=== PATIENT | female | born 1970 | race Two or more races ===

== ENCOUNTER 2017-09-15 11:30 | Outpatient (CLI) | payer OTHER ==
[~2017-09-15 11:30] MED LIST: NEURONTIN300 MG; PROTONIX40 M1; TORADOL30 MG; TRAMADOL HCL-AP1 TAB PO; ZANTAC15 MG/ML; ZOFRAN4 MG PO
== END 2017-09-15 11:52 | disposition home or self-care (01) ==
LOC: MAMO-SONO 11:30
DX: Z12.31 Encounter for screening mammogram for malignant neoplasm of breast (principal)

== ENCOUNTER 2017-10-30 13:17 | Outpatient (CLI) | payer OTHER | END 2017-10-30 13:22 | disposition home or self-care (01) | LOC: SONOGRAMA 13:17 | DX: R10.31 Right lower quadrant pain (principal); R10.32 Left lower quadrant pain ==

== ENCOUNTER 2018-02-16 08:41 | Outpatient (CLI) | payer OTHER | END 2018-02-16 08:51 | disposition home or self-care (01) | LOC: RAD 08:41 | DX: R05 Cough (principal) ==

== ENCOUNTER 2019-07-09 07:57 | Outpatient (CLI) | payer OTHER | END 2019-07-09 08:16 | disposition home or self-care (01) | LOC: MAMO-SONO 07:57 | DX: Z12.31 Encounter for screening mammogram for malignant neoplasm of breast (principal); N63.10 Unspecified lump in the right breast, unspecified quadrant; N63.20 Unspecified lump in the left breast, unspecified quadrant ==

== ENCOUNTER 2020-12-02 08:31 | Outpatient (CLI) | payer OTHER | END 2020-12-02 08:40 | disposition home or self-care (01) | LOC: SONOGRAMA 08:31 → MAMO-SONO 08:45 | PROVIDERS: ATTEND Internal Medicine Rheumatology | DX: M25.512 Pain in left shoulder (principal); M25.822 Other specified joint disorders, left elbow; M77.8 Other enthesopathies, not elsewhere classified; R10.13 Epigastric pain ==

== ENCOUNTER 2021-02-25 10:13 | Outpatient (CLI) | payer OTHER | END 2021-02-25 10:19 | disposition home or self-care (01) | LOC: MAMO-SONO 10:13 | PROVIDERS: ATTEND Specialist | DX: N60.11 Diffuse cystic mastopathy of right breast (principal); N60.12 Diffuse cystic mastopathy of left breast; Z12.31 Encounter for screening mammogram for malignant neoplasm of breast ==

== ENCOUNTER → 2021-03-03 | Outpatient (CLI) | payer OTHER | END | disposition home or self-care (01) | LOC: NUCLEAR 13:18 | PROVIDERS: ATTEND Internal Medicine Rheumatology | DX: M81.0 Age-related osteoporosis without current pathological fracture (principal) ==

== ENCOUNTER 2022-03-04 08:44 | Outpatient (CLI) | payer OTHER | END 2022-03-04 08:53 | disposition home or self-care (01) | LOC: MAMO-SONO 08:44 | PROVIDERS: ATTEND Specialist | DX: R10.13 Epigastric pain (principal); N60.11 Diffuse cystic mastopathy of right breast; N60.12 Diffuse cystic mastopathy of left breast ==

== ENCOUNTER 2023-03-15 10:30 | Outpatient (CLI) | payer OTHER | END 2023-03-15 10:38 | disposition home or self-care (01) | LOC: MAMO-SONO 10:30 | PROVIDERS: ATTEND Obstetrics & Gynecology | DX: N63.0 Unspecified lump in unspecified breast (principal); N64.59 Other signs and symptoms in breast; N64.9 Disorder of breast, unspecified; Z12.31 Encounter for screening mammogram for malignant neoplasm of breast ==

== ENCOUNTER → 2023-03-15 13:16 | Outpatient (CLI) | payer OTHER | END | disposition home or self-care (01) | LOC: NUCLEAR 13:16 | PROVIDERS: ATTEND Internal Medicine Rheumatology | DX: M81.0 Age-related osteoporosis without current pathological fracture (principal) ==

== ENCOUNTER 2024-03-12 07:10 | Outpatient (CLI) | payer OTHER | END 2024-03-12 07:12 | disposition home or self-care (01) | LOC: NUCLEAR 07:10 | PROVIDERS: ATTEND Internal Medicine Rheumatology | DX: M06.4 Inflammatory polyarthropathy (principal) | CPT/HCPCS: 78315; A9503 ==

== ENCOUNTER 2024-03-25 07:19 | Outpatient (CLI) | payer OTHER | END 2024-03-25 07:21 | disposition home or self-care (01) | LOC: MAMO-SONO 07:19 | PROVIDERS: ATTEND Obstetrics & Gynecology | DX: N63.0 Unspecified lump in unspecified breast (principal); N64.59 Other signs and symptoms in breast; N64.9 Disorder of breast, unspecified; Z12.31 Encounter for screening mammogram for malignant neoplasm of breast ==

== ENCOUNTER 2024-06-11 07:21 | Outpatient (CLI) | payer OTHER | END 2024-06-11 07:25 | disposition home or self-care (01) | LOC: SONOGRAMA 07:21 | PROVIDERS: ATTEND Obstetrics & Gynecology | DX: N64.0 Fissure and fistula of nipple (principal); R10.2 Pelvic and perineal pain; N94.89 Other specified conditions associated with female genital organs and menstrual cycle; M46.1 Sacroiliitis, not elsewhere classified ==

== ENCOUNTER 2025-03-27 07:36 | Outpatient (CLI) | payer OTHER | END 2025-03-27 07:40 | disposition home or self-care (01) | LOC: MAMO-SONO 07:36 | PROVIDERS: ATTEND Internal Medicine | DX: N63.0 Unspecified lump in unspecified breast (principal); Z12.31 Encounter for screening mammogram for malignant neoplasm of breast ==